=== PATIENT | male | born 1980 | race African-American/Black ===

== ENCOUNTER 2025-03-11 11:23 | Inpatient (IN) | payer OTHER ==
[~2025-03-11] VITALS: Ht 185.4 cm; Wt 139.7 kg
[2025-03-11 11:35] VITALS: TEMP 98.6
[2025-03-11 12:05] LABS: BASOPHILS % 0.7 % (0.0-1.0); EOSINOPHILS % 1.5 % (0.0-6.0); LYMPHOCYTES % 41.8 % (18.0-39.1); MONOCYTES % 6.2 % (4.4-11.3); NEUTROPHILS % 49.7 % (38.7-80.0); RED CELL DISTRIBUTION WIDTH 12.3 % (11.7-14.4)
[2025-03-11] MEDS: SODIUM CHLORIDE 0.9% 1000ML 1,000 ML IV STA ×2 (12:16→13:45)
[2025-03-11 12:33] LABS: EST GLOMERULAR FILTRATION RATE 113 ML/MIN (>=60)
[2025-03-11] MEDS ORDERED: DEXTROSE 50% SYRINGE 50 ML IV PRN (13:00)
[2025-03-11] MEDS ORDERED: ONDANSETRON HCL INJ 2MG/ML 2ML 2 MG/ML VIAL IV PRN (13:00)
[2025-03-11] MEDS ORDERED: IBUPROFEN 600 MG TAB PO PRN (13:00)
[2025-03-11] MEDS ORDERED: IOPAMIDOL 370 MG/ML 100 ML INFUS..BTL INJ ONE (13:44)
[2025-03-11] MEDS: SODIUM CHLORIDE 0.9% 1000ML 1,000 ML IV SCH (13:45)
[2025-03-11] MEDS: VANCOMYCIN HCL 1.25 GM in SODIUM CHLORIDE 0.9% 250ML 250 ML IV SCH (13:45)
[2025-03-11] MEDS: INSULIN REGULAR, HUMAN 100 UNIT/1 ML IV ONE (13:49)
[2025-03-11 15:00] VITALS: PULSE 102; RESP 12
[2025-03-11] MEDS: INSULIN LISPRO 100 UNIT/1 ML 3ML VIAL SQ SCH (16:30)
[2025-03-11 16:42] LABS: BASOPHILS % (MANUAL) 1 % (0-1.5); LYMPHOCYTES % (MANUAL) 45 % (19-48); MONOCYTES % (MANUAL) 6 % (3.4-9.0); NEUTROPHILS % (MANUAL) 44 % (40-74); REACTIVE LYMPHOCYTES 4
[2025-03-11 16:44] LABS: PLATELET ESTIMATE ADEQUATE; PLATELET MORPHOLOGY COMMENT FEW LARGE
[2025-03-11 16:45] LABS: RBC MORPHOLOGY COMMENT NORMAL
[2025-03-11 18:18] VITALS: BP 121/75; PULSE 81; RESP 18; TEMP 97.8; O2SAT 100
[2025-03-11] MEDS ORDERED: ZOLOFT50 MG PO (18:35)
[2025-03-11] MEDS ORDERED: KLONOPIN2 MG PO (18:36)
[2025-03-11] MEDS ORDERED: HYDROCODON-ACE1 EAC9 PO (18:38)
[2025-03-11] MEDS ORDERED: LASIX10 MG/ML PO (18:39)
[2025-03-11 18:43] VITALS: BP 121/75; PULSE 81; RESP 18; TEMP 97.8; O2SAT 100
[2025-03-11 19:48] LABS: INR 0.94
[2025-03-11 20:00] VITALS: BP 127/71; PULSE 82; RESP 18; TEMP 98.5; O2SAT 100
[2025-03-11] MEDS ORDERED: CLONAZEPAM 5 MG PO SCH (20:15)
[2025-03-11 20:19] VITALS: BP 121/75; PULSE 81; RESP 18; TEMP 97.8; O2SAT 100
[2025-03-11] MEDS: HYDROCODONE/APAP 5MG-325MG TAB PO PRN (20:53)
[2025-03-11] MEDS: SERTRALINE HCL 50 MG TAB PO SCH (21:55)
[2025-03-12] VITALS (8 sets, daily range): BP systolic 121–141; BP diastolic 75–96; PULSE 70–88; RESP 18–21; TEMP 97.5–98.4; O2SAT 98–100
[2025-03-12 05:30] LABS: BASOPHILS % 0.9 % (0.0-1.0); EOSINOPHILS % 1.8 % (0.0-6.0); LYMPHOCYTES % 48.0 % (18.0-39.1); MONOCYTES % 5.5 % (4.4-11.3); NEUTROPHILS % 43.5 % (38.7-80.0); RED CELL DISTRIBUTION WIDTH 12.5 % (11.7-14.4)
[2025-03-12 05:48] LABS: EST GLOMERULAR FILTRATION RATE 110.0 ML/MIN (>=60)
[2025-03-12] MEDS: FUROSEMIDE INJ 10 MG/ML 2 ML VIAL IV SCH (09:14)
[2025-03-12] MEDS ORDERED: CLONAZEPAM 0.5 MG TAB PO PRN (11:45)
[2025-03-12] MEDS: NICOTINE 7 MG PATCH TOP SCH (12:33)
[2025-03-13] VITALS: BP 134/90; PULSE 84; RESP 18; TEMP 97.6; O2SAT 100
[2025-03-13 04:00] VITALS: BP 127/81; PULSE 70; RESP 18; TEMP 97.8; O2SAT 97
[2025-03-13 07:40] VITALS: BP 158/108; PULSE 77; RESP 17; TEMP 97.9; O2SAT 100
[2025-03-13 08:30] VITALS: BP 158/108; PULSE 77; RESP 17; TEMP 97.9; O2SAT 100
== END 2025-03-13 12:08 | disposition home or self-care (01) | DRG 603 ==
LOC: ER 11:40 → ERHOLD 12:57 → MED/SURG 16:38
PROVIDERS: ADMIT Internal Medicine; ATTEND Internal Medicine
DX: L03.311 Cellulitis of abdominal wall (principal); Z68.41 Body mass index [BMI] 40.0-44.9, adult; E11.65 Type 2 diabetes mellitus with hyperglycemia; L98.499 Non-pressure chronic ulcer of skin of other sites with unspecified severity; L02.221 Furuncle of abdominal wall; K76.0 Fatty (change of) liver, not elsewhere classified; R59.0 Localized enlarged lymph nodes; R60.0 Localized edema; E66.01 Morbid (severe) obesity due to excess calories; F41.9 Anxiety disorder, unspecified; F17.200 Nicotine dependence, unspecified, uncomplicated; Z79.899 Other long term (current) drug therapy
CPT/HCPCS: 36415; 74177; 80053; 80202; 82948; 83036; 83735; 85025; 85610; 85730; 87040; 87071; 87205; 99252; 99284; J1938; J2543; J7030; J7050; Q9967